=== PATIENT | female | born 1995 | race Caucasian/White ===

== ENCOUNTER 2019-05-24 11:24 | Emergency (ER) | payer BC, MEDICAID ==
[~2019-05-24] VITALS: Ht 160 cm; Wt 57.0 kg
[~2019-05-24 11:24] MED LIST: CEPH-443 PO; SULF1TAB31 PO
[2019-05-24 11:44] VITALS: BP 117/72; PULSE 84; RESP 18; Ht 160 cm; Wt 57.0 kg
== END 2019-05-24 12:39 | disposition home or self-care (01) ==
LOC: E/R 11:24
DX: H05.011 Cellulitis of right orbit (principal); Z87.891 Personal history of nicotine dependence
CPT/HCPCS: 99283